=== PATIENT | male | born 1970 | race Caucasian/White ===

== ENCOUNTER 2022-09-08 09:50 | Outpatient (CLI) | payer BC ==
[2022-09-08] MEDS ORDERED: Iopamidol 300 61% 100 ML VIAL FS ONE (10:03)
== END 2022-09-08 09:51 | disposition home or self-care (01) ==
LOC: CSHCT 09:50
PROVIDERS: ATTEND Nurse Practitioner Family
DX: R91.1 Solitary pulmonary nodule (principal)
CPT/HCPCS: 71260; Q9967

== ENCOUNTER 2024-03-31 09:34 | Outpatient (CLI) | payer BC | END 2024-03-31 09:35 | disposition home or self-care (01) | LOC: CSHCT 09:34 | PROVIDERS: ATTEND Family Medicine | DX: R91.1 Solitary pulmonary nodule (principal) | CPT/HCPCS: 71250 ==